=== PATIENT | female | born 1985 | race Two or more races ===

== ENCOUNTER → 2016-07-06 | Outpatient (REF) | payer OTHER | LOC: M SFHCLERA 13:25 | PROVIDERS: ATTEND Nurse Practitioner Family | DX: R30.0 Dysuria (principal) ==

== ENCOUNTER 2016-12-21 10:47 | Emergency (ER) | payer OTHER ==
[~2016-12-21] VITALS: Ht 180.3 cm; Wt 73.9 kg
[2016-12-21] MEDS ORDERED: PHEN15CA PO (11:09)
[2016-12-21 11:54] LABS: BASO % 1.1 % (0.0-1.0); EOS # 0.1 K/mm3 (0.0-0.50); EOS % 2.1 % (0.0-3.0); LARGE UNSTAINED CELL # 0.1 K/mm3 (0.0-0.4); LARGE UNSTAINED CELL % 1.5 % (0.0-4.0); LYMPH # 1.4 K/mm3 (1.5-4.5); LYMPH % 27.1 % (24.0-44.0); MEAN CORPUSCULAR HEMOGLOBIN 31.5 pg (27.0-33.0); MEAN CORPUSCULAR HGB CONC 34.2 g/dl (32.0-36.5); MEAN CORPUSCULAR VOLUME 91.9 fl (80.0-96.0); MONO # 0.3 K/mm3 (0.0-0.8); MONO % 5.2 % (0.0-5.0); NEUTROPHILS % 62.9 % (36.0-66.0); PLATELET COUNT, AUTOMATED 232 k/mm3 (150-450); RED CELL DISTRIBUTION WIDTH 11.9 % (11.5-14.5); WHITE BLOOD COUNT 4.7 K/mm3 (4.0-10.0)
[2016-12-21 12:28] LABS: ANION GAP 7 MEQ/L (8-16); BLOOD UREA NITROGEN 14 MG/DL (7-18); CALCIUM LEVEL 8.9 MG/DL (8.5-10.1); CARBON DIOXIDE LEVEL 25 MEQ/L (21-32); CHLORIDE LEVEL 105 MEQ/L (98-107); GLOMERULAR FILTRATION RATE > 60.0 (>60); GLUCOSE, FASTING 83 MG/DL (70-105); POTASSIUM SERUM 4.3 MEQ/L (3.5-5.1); SODIUM LEVEL 137 MEQ/L (136-145)
[2016-12-21] MEDS ORDERED: KETOROLAC 60 MG/2 ML VIAL (J1885) IM ONE (12:30)
[2016-12-21] MEDS ORDERED: BACL10TA2 PO (13:48)
[2016-12-21] MEDS ORDERED: TYLE325T5 PO (13:48)
[2016-12-21] MEDS ORDERED: NAPR500T3 PO (13:48)
[2016-12-21 14:02] VITALS: BP 111/72
--- NOTE | 2016-12-21 14:45 | REP ---
LUMBAR SPINE, FIVE VIEWS: HISTORY: Back pain. The lowest intervertebral disc is assumed to be the L5-S1 intervertebral disc. There is no acute fracture or subluxation. The L3-4 and L4-5 intervertebral discs are decreased in height consistent with disc degeneration. Osteophytes are present on L4 and L5. The facet joints are normal in appearance. IMPRESSION: Degenerative change as described above. Signed by Mahin Walsh MD 12/21/2016 02:48 P
== END 2016-12-21 14:03 | disposition home or self-care (01) ==
LOC: M ED 10:47
DX: M54.5 Low back pain (principal); R82.71 Bacteriuria; Z87.891 Personal history of nicotine dependence
CPT/HCPCS: 72110; 80048; 81001; 81025; 85025; 87086; 87491; 87591; 96372; 99283; J1885

== ENCOUNTER → 2016-12-30 | Outpatient (CLI) | payer OTHER ==
[~2016-12-30] MED LIST: BACL10TA2 PO; NAPR500T3 PO; PHEN15CA PO; TYLE325T5 PO
--- NOTE | 2016-12-30 14:12 | REP ---
Lumbar spine five views: Comparison is 12/21/2016. I suspect that the twelfth ribs are hypoplastic bilaterally. The left transverse process of L5 is hypertrophied and forms a pseudoarticulation with the sacrum. 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 There is disc space narrowing and degenerative disc disease at L4-5 and L5 S1. This has progressed slightly. The remainder of the disc spaces are unremarkable. There is no spondylolysis or spondylolisthesis. The pedicles, facets and sacroiliac articulations are otherwise unremarkable. 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 Mild L4-5 and L5-S1 degenerative disc disease that has slightly progressed. Signed by Raman Erazo MD 12/30/2016 02:04 P
== END ==
LOC: M LRY 13:32
PROVIDERS: ATTEND Nurse Practitioner Family
DX: M54.42 Lumbago with sciatica, left side (principal); M51.36 Other intervertebral disc degeneration, lumbar region; M51.37 Other intervertebral disc degeneration, lumbosacral region
CPT/HCPCS: 72110; 96372; G0463; J1885

== ENCOUNTER → 2017-01-28 | Outpatient (REF) | payer OTHER | LOC: M LAB REF 20:55 | PROVIDERS: ATTEND Physician Assistant | DX: J03.90 Acute tonsillitis, unspecified (principal) ==

== ENCOUNTER → 2018-06-29 | Outpatient (REF) | payer OTHER ==
[~2018-06-29] MED LIST changes: +NAPR-885 PO; -NAPR500T3 PO
== END ==
LOC: M SFHCLERA 14:08
PROVIDERS: ATTEND Physician Assistant
DX: R50.9 Fever, unspecified (principal)

== ENCOUNTER → 2018-12-01 | Outpatient (CLI) | payer OTHER ==
--- NOTE | 2018-12-01 16:52 | REP ---
PA and lateral chest: There are no comparisons. The lung judd are clear. The cardiac size is normal. The ady and mediastinum are unremarkable. There is thoracic scoliosis convex right superiorly and left inferiorly. Impression: Thoracic scoliosis. Otherwise, negative PA and lateral chest Electronically Signed by Raman Erazo MD 12/01/2018 04:44 P
== END ==
LOC: M LRY 16:24
PROVIDERS: ATTEND Physician Assistant
DX: R50.9 Fever, unspecified (principal); R05 Cough; R06.2 Wheezing; M41.34 Thoracogenic scoliosis, thoracic region
CPT/HCPCS: 71046; 87804; 94640; G0463